=== PATIENT | male | born 1945 | race Hispanic/Latino ===

== ENCOUNTER → 2024-01-02 | Outpatient (CLI) | payer OTHER | END | disposition home or self-care (01) | LOC: RAH 13:49 | PROVIDERS: ATTEND Internal Medicine | DX: S63.213A Subluxation of metacarpophalangeal joint of left middle finger, initial encounter (principal); M19.042 Primary osteoarthritis, left hand; M25.742 Osteophyte, left hand; M79.642 Pain in left hand; X58.XXXA Exposure to other specified factors, initial encounter; Y93.89 Activity, other specified; Y92.89 Other specified places as the place of occurrence of the external cause; Y99.8 Other external cause status | CPT/HCPCS: 73130 ==